=== PATIENT | male | born 1955 | race Caucasian/White ===

== ENCOUNTER 2025-03-31 18:42 | Emergency (ER) | payer SELFPAY ==
[2025-03-31] MEDS ORDERED: LORazepam 2 MG/ML SDV ONE (18:54)
[2025-03-31] MEDS ORDERED: Rocuronium 100 MG/10 ML MDV ONE (19:02)
[2025-03-31 19:04] LABS: BASOPHILS ABSOLUTE AUTO 0.02 K/uL (0.00-0.20); BASOPHILS PERCENT AUTO 0.1 % (0.0-2.0); EOSINOPHILS ABSOLUTE AUTO 0.00 K/uL (0.00-0.50); EOSINOPHILS PERCENT AUTO 0.0 % (0.0-5.0); IMMATURE GRAN ABSOLUTE AUTO 0.08 10^3/uL (0.00-0.04); IMMATURE GRAN PERCENT AUTO 0.3 % (0.0-0.4); LYMPHOCYTES ABSOLUTE AUTO 0.55 K/uL (0.50-3.50); LYMPHOCYTES PERCENT AUTO 2.4 % (10.0-50.0); MONOCYTES ABSOLUTE AUTO 0.78 K/uL (0.00-1.00); MONOCYTES PERCENT AUTO 3.4 % (2.0-14.0); NEUTROPHILS ABSOLUTE AUTO 21.54 K/uL (1.40-7.00); NEUTROPHILS PERCENT AUTO 93.8 % (45.0-80.0); PLATELET COUNT,PLT 347 K/uL (150-350); RED BLOOD CELL COUNT 4.06 M/uL (4.33-5.41); RED CELL DISTRIBUTION WIDTH 13.4 % (11.2-14.1); WHITE BLOOD CELL COUNT,WBC 23.0 K/uL (4.0-10.2)
[2025-03-31] MEDS ORDERED: Etomidate 2 MG/ML 10 ML SDV IVPUSH ONE (19:21)
[2025-03-31] MEDS ORDERED: Rocuronium 100 MG/10 ML MDV IVPUSH ONE (19:22)
[2025-03-31 19:25] LABS: INR 1.3 (0.9-1.1)
[2025-03-31 19:28] LABS: ALANINE AMINOTRANSFERASE,ALT 17 U/L (12-78); ASPARTATE AMNIOTRANSFERASE,AST 15 U/L (15-37); BILIRUBIN TOTAL 1.4 mg/dL (0.2-1.0); CARBON DIOXIDE,CO2 16.2 mmol/L (21.0-32.0); CHLORIDE,CL 101 mmol/L (98-107); GLUCOSE RANDOM 136 mg/dL (70-99); PROTEIN TOTAL,TP 7.9 g/dL (6.4-8.2); SODIUM,NA 131 mmol/L (136-145)
[2025-03-31] MEDS ORDERED: Midazolam 1 MG/ML 2 ML SDV IVPUSH ONE (19:30)
[2025-03-31] MEDS ORDERED: Metoprolol Tartrate 5 MG/5 ML SDV IV ONE (19:42)
[2025-03-31] MEDS ORDERED: fentaNYL 50 MCG/ML SDV ONE (19:42)
[2025-03-31] MEDS ORDERED: Midazolam 1 MG/ML 2 ML SDV IV ONE (19:45)
[2025-03-31] MEDS ORDERED: fentaNYL 100 MCG/2 ML SDV IVPUSH ONE (19:49)
[2025-03-31] MEDS ORDERED: 50% Dextrose in Water 50 ML Syringe ONE (20:00)
[2025-03-31] MEDS ORDERED: Insulin Regular, Human 100 Units/ML 3 ML Vial ONE (20:01)
[2025-03-31 20:03] LABS: CREATININE 6.75 mg/dL (0.51-1.17); ESTIMATED GFR 8 mL/min (>=60)
[2025-03-31 20:04] LABS: BLOOD UREA NITROGEN,BUN 126 mg/dL (7-18)
[2025-03-31 20:06] LABS: POTASSIUM,K 6.3 mmol/L (3.5-5.1)
[2025-03-31] MEDS ORDERED: Calcium Gluconate 10% 1 GM/10 ML SDV IVPUSH ONE (20:10)
[2025-03-31] MEDS ORDERED: Insulin Regular, Human 100 Units/ML 3 ML Vial IVPUSH ONE (20:12)
[2025-03-31 20:20] LABS: AMPHETAMINES SCREEN, URINE NEGATIVE (NEGATIVE); COCAINE METABOLITES,URINE NEGATIVE (NEGATIVE); EDDP,URINE SCREEN NEGATIVE (NEGATIVE); METHAMPHETAMINES SCREEN, URINE NEGATIVE (NEGATIVE); TCA SCREEN,URINE NEGATIVE (NEGATIVE); THC SCREEN,URINE 50 NG/ML NEGATIVE (NEGATIVE)
[2025-03-31 20:21] LABS: APPEARANCE,URINE TURBID (CLEAR); GLUCOSE,URINE NEGATIVE (NEGATIVE)
[2025-03-31 20:22] LABS: OCCULT BLOOD,URINE MODERATE (NEGATIVE)
[2025-03-31 20:23] LABS: BUPRENORPHINE SCREEN,URINE NEGATIVE (NEGATIVE); OXYCODONE SCREEN,URINE NEGATIVE (NEGATIVE)
[2025-03-31] MEDS ORDERED: Midazolam 1 MG/ML 2 ML SDV ONE (20:24)
[2025-04-06] MEDS ORDERED: Sodium Chloride 0.9% 10 ML Syringe FLUSH PRN (23:52)
== END 2025-03-31 20:56 ==
LOC: LL.ED 18:42
DX: A41.9 Sepsis, unspecified organism (principal); I60.9 Nontraumatic subarachnoid hemorrhage, unspecified; R65.21 Severe sepsis with septic shock; E87.5 Hyperkalemia
CPT/HCPCS: 31500; 36415; 51702; 70450; 71045; 80053; 80305-QW; 80307; 81001; 82947; 83605; 84484; 85025; 85610; 87040; 87077; 87086; 87088; 87186; 93010; 96365; 96374; 96375; 99284; 99291-25; 99292; J0612; J1815-GY; J2250; J2543; J3010; J3490